=== PATIENT | male | born 1985 | race Two or more races ===

== ENCOUNTER 2020-08-15 11:34 | Emergency (ER) | payer SELFPAY ==
[~2020-08-15] VITALS: Ht 175.3 cm; Wt 85.4 kg
--- NOTE | 2020-08-15 13:15 | NUR ---
PT HERE WITH COMPLAINT OF FLANK PAIN RADIATING INTO ABD. SUDDEN ONSET. FEELS LIKE PREVIOUS KIDNEY STONE. REQUESTED UA. PT UNABLE AT THIS TIME. IV STARTED BLOOD DRAWN. AWAITING MD ORDERS.
[2020-08-15] MEDS ORDERED: SODIUM CHLORIDE FLUSH 10ML SYR IVF ONE (13:30)
[2020-08-15] MEDS ORDERED: ONDANSETRON 2MG/ML, 2ML IVPush ONE (13:30)
[2020-08-15] MEDS ORDERED: KETOROLAC 30 MG/1 ML IVPush ONE (13:30)
[2020-08-15 13:35] LABS: BASOPHILS % (AUTO) 0 % (0-1); EOSINOPHILS % (AUTO) 1 % (1-7); LYMPHOCYTES % (AUTO) 13 % (22-44); MEAN CORPUSCULAR HEMOGLOBIN 31.1 pg (27.5-34.5); MEAN PLATELET VOLUME 9.2 fL (7.4-10.4); MONOCYTES % (AUTO) 8 % (2-9); NEUTROPHILS % (AUTO) 77 % (42-75); PLATELET COUNT 251 x10^3/uL (130-400); RED BLOOD COUNT 5.09 x10^6/uL (4.38-5.82)
--- NOTE | 2020-08-15 13:35 | NUR ---
assumed care of pt. pt here for L flank and LLQ pain. pt denies hematuria. +hx of kidney stone. pt pacing in room
[2020-08-15] MEDS ORDERED: ONDANSETRON 2MG/ML, 2ML ONE (13:37)
[2020-08-15] MEDS ORDERED: KETOROLAC 30 MG/1 ML ONE (13:37)
[2020-08-15 13:38] LABS: MD NO
[2020-08-15 13:49] LABS: ALBUMIN 3.8 g/dL (3.4-5.0); ANION GAP 5 mmol/L (5-15); CALCIUM 8.7 mg/dL (8.5-10.1); CHLORIDE 108 mmol/L (98-107); CREATININE 1.02 mg/dL (0.7-1.3)
--- NOTE | 2020-08-15 14:00 | NUR ---
attempted to enter room for re-assessment, pt in RAD
--- NOTE | 2020-08-15 14:15 | NUR ---
pt has been returned form RAD. pt is screaming in room
--- NOTE | 2020-08-15 14:28 | NUR ---
pt calmer now. walking around in room. Pauline NIELSEN at bedside for recheck
[2020-08-15] MEDS ORDERED: OXYcodone/APAP 5/325MG TABLET PO ONE (14:30)
[2020-08-15] MEDS ORDERED: OXYcodone/APAP 5/325MG TABLET ONE (14:40)
--- NOTE | 2020-08-15 14:45 | NUR ---
pt has been medicated per order. pt states that he did not drive here. pt advised not to drive after percocet. pt verbalized understanding
[2020-08-15 15:07] LABS: MICROSCOPIC AUTO
--- NOTE | 2020-08-15 15:18 | NUR ---
pt sitting on [facility] in no apparent distress. no new c/o. chart up for MD recheck
[2020-08-15 16:11] VITALS: BP 124/78
== END 2020-08-15 16:15 | disposition home or self-care (01) ==
LOC: ED 15:55
DX: N20.1 Calculus of ureter (principal); R10.9 Unspecified abdominal pain; R10.32 Left lower quadrant pain; R39.15 Urgency of urination; R11.0 Nausea; M54.9 Dorsalgia, unspecified; Z88.0 Allergy status to penicillin
CPT/HCPCS: 36415; 74176; 80048; 81001; 82040; 85025; 96374; 96375; 99284; J1885; J2405